=== PATIENT | male | born 1935 | race Caucasian/White ===

== ENCOUNTER 2016-10-01 14:17 | Inpatient (IN) ==
[2016-10-01] MEDS ORDERED: ZOFRAN IV PRN (16:09)
[2016-10-01 17:04] LABS: HEMATOCRIT 32.5 % (42.0-52.0); HEMOGLOBIN 10.4 g/dL (14.0-18.0)
[2016-10-01] MEDS ORDERED: MORPHINE IV ONE (17:17)
[2016-10-01] MEDS ORDERED: MORPHINE IV PRN (17:17)
[2016-10-01] MEDS ORDERED: B & O 15A SUPP PR PRN (17:29)
[2016-10-01 17:34] LABS: CALCIUM 8.9 mg/dL (8.8-10.2)
[2016-10-01 17:35] LABS: POTASSIUM 6.2 mmol/L (3.5-5.1)
[2016-10-01] MEDS ORDERED: NUBAIN IV ONE (17:36)
[2016-10-01] MEDS ORDERED: KAYEXALATE PO ONE (17:36)
[2016-10-01] MEDS ORDERED: NS NEB INH SCH (18:00)
[2016-10-01] MEDS ORDERED: CALCIUM GLUCONATE 4.65 MEQ in NS 50 ML IV ONE (18:00)
[2016-10-01] MEDS: NS 1,000 ML IV SCH (18:35)
[2016-10-01] MEDS: CARDIZEM PO SCH (20:38)
[2016-10-01] MEDS: TYLENOL PO PRN (20:38)
[2016-10-01] MEDS ORDERED: STERILE WATER INJ. ONE (20:46)
[2016-10-01] MEDS: XOPENEX NEB INH SCH (22:53)
[2016-10-02] MEDS: CARDIZEM PO SCH ×4 (02:12→21:54)
--- NOTE | 2016-10-02 04:47 | HISTORY AND PHYSICAL ---
CHIEF COMPLAINT: Hematuria. HISTORY OF PRESENT ILLNESS: Briefly, this is an 81-year-old male, history of atrial fibrillation, on Coumadin therapy, BPH, COPD. It here he has got a chronic indwelling Putnam, but his family denies this. He was admitted on the , but he has been in and out of the hospital for the last 2 weeks per his son. He initially had "double pneumonia." I think he had a catheter placed during that hospitalization. He subsequently developed hematuria. Additionally, he had some rectal bleeding associated with hemorrhoids. Off-and-on for the last week and a half though, he has had persistent hematuria, which has never really cleared up, but he was discharged. I think he went home with a Putnam, came back in because of worsening shortness of breath. On the , his saturations were down into the 80s. He was placed on oxygen and had some improvement. He was felt to have a COPD exacerbation at that time, and some renal failure. I do not have a baseline renal function, but reportedly here it says he is stage 3-4. His creatinine at the outlying facility has been around 4. Coumadin had been discontinued because of his hematuria. INR has been around 1. In any case, he was transferred here for urological evaluation because of the persistent hematuria and renal dysfunction. He has had some hyperkalemia as well in the 5 range, which has been treated there. They have been flushing his catheter, but the hematuria really has not improved. Based on the lab work, his hemoglobin and hematocrit was 9.9 and 30.9 when he came in. It is 9 and 29 today. White count of had been about 11 and 12. His creatinine, INR yesterday was 1.1. Again, I think he has been off of Coumadin. His creatinine has been 75, 4.8, 71, and 4.1 today, and that is with fluids, GFR being 12-14. Again, I think his baseline creatinine is usually around, at least stage-stinson, 3-4. The patient admitted for gross hematuria associated with Putnam and anticoagulation, possibly other diagnosis. PAST MEDICAL HISTORY: 1. Atrial fibrillation. 2. Hypertension. 3. History of pneumonia. 4. BPH. 5. COPD, on oxygen. 6. Chronic renal failure, stage 3 to 4. 7. Hemorrhoids. 8. His kidney disease, he has been on dialysis historically, but nothing recently. PAST SURGICAL HISTORY: 1. Tonsillectomy. 2. Appendectomy. SOCIAL HISTORY: No tobacco. No ethanol. 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 ALLERGIES: No known drug allergies, although apparently he had significant mentation issues associated with morphine. FAMILY HISTORY: Son with diabetes and PVD. MEDICATIONS: List is being compiled. He has been on lisinopril, warfarin, amlodipine, finasteride, Flomax, Breo, and previously Eliquis. REVIEW OF SYSTEMS: Otherwise, negative x10 systems was reviewed. PHYSICAL EXAMINATION: VITAL SIGNS: Right now, heart rate in the 130s. GENERAL: A well-developed male, having severe pain, associated with spasms from his bladder, in mild distress. HEENT: Pupils equal, round, reactive to light. Extraocular movements were intact. PERRLA. Lips do seem somewhat darkened. NECK: Supple. CARDIOVASCULAR: Regular rate and rhythm. PULMONARY: Bilateral breath sounds. Clear to auscultation. GASTROINTESTINAL: Soft, nontender, nondistended. Bowel sounds are positive. LABORATORY DATA: Again, his most recent BUN and creatinine here are 73 and 3.7. Potassium 6.2, hemoglobin and hematocrit 10 and 32. Platelets previously stable. I do not have any other imaging. ASSESSMENT AND PLAN: This is an 81-year-old male with history of atrial fibrillation, hypertension, who presents with persistent hematuria, associated with Putnam catheter placement, and we will clinically monitor. 1. Hematuria. Will pursue consult. Monitor hemoglobin and hematocrit. At this point, he does not need a transfusion. Anticoagulation has been discontinued, so I do not think that is contributing. I personally think he needs continuous bladder irrigation until the hematuria resolves. He will need likely cystoscopy. I am going to pursue imaging just to evaluate his bladder and kidneys, just to ensure there is no obstruction or mass or anything that could be associated. 2. Chronic obstructive pulmonary disease. This appears to be stable. We will continue to monitor closely. Continue nebulizer treatments, oxygen, and follow. He is not having any decompensation at this point. 3. Atrial fibrillation. Right now he is a little fast, although when auscultating earlier, he seemed to be more close to 100. We will need to continue some low-dose Cardizem to ensure that his blood pressure stabilizes. 4. Atrial fibrillation. We will continue Cardizem, obviously holding anticoagulation. We will follow clinically. 5. Disposition. Pending his clinical course. cc: MD Oksana Echeverria MD
[2016-10-02 05:57] LABS: MANUAL DIFF NEEDED? NO
[2016-10-02] MEDS: NS 1,000 ML IV SCH ×3 (05:58→20:18)
[2016-10-02] MEDS: PRILOSEC PO SCH ×2 (05:58→06:02)
[2016-10-02] MEDS: ATIVAN IV ONE ×2 (06:00→07:38)
[2016-10-02 06:10] LABS: INR 1.16; PROTIME 12.3 Seconds (9.2-11.7); PTT 28.3 Seconds (22.0-36.0)
[2016-10-02 06:22] LABS: BASO% 0.3 % (0.0-0.8); EOS# 0.24 X1000 (0.0-0.7); EOS% 2.2 % (0.0-10.0); HEMOGLOBIN 9.2 g/dL (14.0-18.0); IMM GRAN# 0.04 X1000 (0.0-0.04); IMM GRAN% 0.4 % (0.0-0.5); LYMPH# 0.88 X1000 (1.2-3.4); LYMPH% 8.2 % (20.5-51.1); MCH 31.1 PG (27-31); MCHC 31.7 g/dL (33-37); MONO# 1.07 X1000 (0.11-0.59); MONO% 9.9 % (1.7-9.3); MPV 11.2 FL (7.4-10.4); PLT 132 X1000 (130-400); RBC 2.96 XMIL (4.7-6.1)
[2016-10-02 06:33] LABS: ALBUMIN 3.2 g/dL (3.5-5.0); CALCIUM 8.7 mg/dL (8.8-10.2); POTASSIUM 6.5 mmol/L (3.5-5.1); TOTAL BILIRUBIN 0.46 mg/dL (0.20-1.00); TOTAL PROTEIN 5.9 g/dL (6.3-8.3)
[2016-10-02] MEDS ORDERED: ATIVAN IV ONE (06:35)
[2016-10-02] MEDS ORDERED: KAYEXALATE PO ONE (06:56)
[2016-10-02] MEDS ORDERED: D50W SYRINGE IV ONE (06:59)
[2016-10-02] MEDS ORDERED: HUMULIN R IV ONE (07:00)
[2016-10-02] MEDS ORDERED: ALBUTEROL 0.5% INH CONC FOR HYPERKALEMIA INH ONE (07:07)
[2016-10-02] MEDS: XOPENEX NEB INH SCH ×3 (07:36→21:58)
--- NOTE | 2016-10-02 07:40 | Diag Imaging Result Doc PS360 ---
EXAM: RENAL STONE SEARCH INDICATION: hematuria TECHNIQUE: COMPARISON: None. FINDINGS: There is a moderate-sized right pleural effusion and a small left effusion. There is bibasilar atelectasis and infiltrate at the lung bases. There is likely pneumonia at both lung bases, especially on the right. There has been a previous cholecystectomy. There are bilateral cyst density renal lesions. There are couple tiny hyperdense foci on the right probably represent tiny blood filled cysts. Consider at least ultrasound follow-up. There is probably a tiny nonobstructing intrarenal stone on the left. There are no ureteral stones and there is no hydronephrosis. The prostate is enlarged. A Putnam catheter is in place. There is a small amount of dense debris layering in the urinary bladder, likely blood products. There are bilateral inguinal hernias that contain only fat. There is no evidence of bowel obstruction. There is uncomplicated diverticulosis coli. The remainder of the solid viscera of the abdomen and pelvis and the remainder of the GI tract are essentially unremarkable. There is bilateral L5 spondylolysis with grade 1 anterolisthesis of L5 on S1. There is multilevel degenerative arthropathy throughout the spine. IMPRESSION: 1.Layering debris in the urinary bladder, likely blood products. 2.Bilateral renal cysts with a couple small hypodense foci involving the right kidney, likely blood-filled cysts. Consider at least ultrasound follow-up. 3.Enlarged prostate. 4.Bibasilar pleural effusions and atelectasis as described with likely superimposed pneumonia. 5.Other incidental/nonacute findings detailed above. Electronically signed by Casa Romo 10/02/2016 7:37 AM
[2016-10-02] MEDS ORDERED: SODIUM BICARBONATE 8.4% IV ONE (08:27)
--- NOTE | 2016-10-02 08:41 | Diag Imaging Result Doc PS360 ---
EXAM: CHEST-2 VIEWS HISTORY: hypoxia TECHNIQUE: COMPARISON: None. FINDINGS: The lungs are well expanded. The heart is mildly prominent. There are increased interstitial markings bilaterally. There is increased density in the posterior inferior lungs and there are small pleural effusions. IMPRESSION: Cardiomegaly with mild pulmonary edema and small pleural effusions as well as basilar atelectasis. Follow-up films recommended. Electronically signed by Bhaskar Allen 10/02/2016 8:38 AM
[2016-10-02] MEDS: TYLENOL PO PRN ×2 (09:46→21:54)
[2016-10-02] MEDS: PYRIDIUM PO SCH ×3 (09:46→21:54)
[2016-10-02] MEDS: ZOSYN 2.25 GM/NS 2.25 GM/50 ML IVPB IV SCH ×3 (11:01→22:30)
[2016-10-02 11:16] LABS: MAGNESIUM 1.7 mg/dL (1.5-2.7)
--- NOTE | 2016-10-02 13:12 | EKG Report ---
Test Performed on : 10/02/2016 12:46:14 PM Test Reason : hyperkalemia Blood Pressure : / mmHG Vent. Rate : 086 BPM Atrial Rate : 080 BPM P-R Int : 000 ms QRS Dur : 104 ms QT Int : 392 ms P-R-T Axes : 000 032 011 degrees QTc Int : 469 ms Atrial fibrillation. Abnormal ECG No previous ECGs available Confirmed by Miguel Parrish MD ([id number]) on 10/03/2016 2:16:37 PM
--- NOTE | 2016-10-02 14:01 | CONSULTATION ---
DATE OF CONSULTATION: 10/02/2016 REASON FOR CONSULTATION: Chronic kidney disease. HISTORY OF PRESENT ILLNESS: Mr. Mancilla is an 81-year-old white male with multiple medical problems, including COPD, atrial fibrillation, hypertension. He has known chronic kidney disease and the chart indicates that he has actually required dialysis in the past. He is not in the [facility] or in my office system, however. He presented to the hospital in [place] on the with pneumonia. He had difficulty with voiding and hematuria and a Putnam catheter was placed. He was transferred to our facility yesterday because of an obstructed Putnam and need from assistance from Urology. He had his Putnam catheter replaced and an irrigation catheter was installed. Since that time, he has been having constant irrigation with improvement in his urine output. CT of the abdomen was performed as part of his evaluation overnight. The official report describes debris in the bladder consistent with blood products as well as bilateral renal cysts and no evidence of obstruction. In this context, his creatinine on presentation was 3.7. It was 4.3 at the outlying facility. Again we do not have any old data available to us. He has chronic COPD and some shortness of breath. His appetite is intact. No nausea or vomiting. No chest pain or palpitation. Swelling is present. PAST MEDICAL HISTORY: As above. He has also had recently bilateral pneumonia. BPH. HOME MEDICATIONS: Include acetaminophen, ondansetron, morphine, opium/ belladonna, Nubain, sodium polystyrene, calcium gluconate, diltiazem, lorazepam, levalbuterol, omeprazole, piperacillin. These are the medicines on transfer. ALLERGIES: Morphine. SOCIAL HISTORY: He is to his 2nd . He has 4 adult children. No alcohol or tobacco. FAMILY HISTORY: Noncontributory. No kidney disease. PHYSICAL EXAMINATION: Vital Signs: Blood pressure 155/74, heart rate 95, respiration 18, afebrile. Generally: He is an elderly man in no distress. Skin: Warm and dry. Conjunctivae are pink. Pupils are equal. Oropharynx is clear and dry. Neck: Supple. Trachea is midline. Neck veins are not distended. Heart: Irregular with a holosystolic murmur that radiates to the axilla. Lungs: Have equal breath sounds. No crackles or wheezes. Abdomen: Soft, nontender. Bowel sounds are present. No organomegaly or masses. Extremities: Have 2+ edema. No clubbing or cyanosis. Neurologic: Nonfocal. LABORATORY DATA: Sodium 141, potassium 6.5, chloride 109, bicarbonate 18, BUN 74, creatinine 3.8, hemoglobin 9.2. IMPRESSION: 1. Renal failure: Chronic kidney disease stage 4 to 5. No clear evidence of overlying acute kidney injury. He has had appropriate imaging. I have reviewed his medications and no changes are required at this time. He does have significant hyperkalemia that has been treated both with acute treatment and with sodium polystyrene to address his chronic hyperkalemia. We will need to continue this over the next several days. He has no absolute indications for dialysis at this time unless his potassium cannot be managed. I would prefer to observe for 24-48 hours before making this decision. He does have metabolic acidosis that is moderate in degree and stable. 2. Anemia is present. We will check iron stores, B12, and folate. cc: MD Billy Landry MD MTDD
[2016-10-02 14:25] LABS: UR CREAT RANDOM 61.5 mg/dL (14-26); UR PROT RANDOM 48.7 mg/dL
--- NOTE | 2016-10-02 14:25 | ECHO REPORT ---
ORDER DATE: 10/02/2016 ECHOCARDIOGRAPHIC MEASUREMENTS: 1. Interventricular septum 1.4 2. Left ventricular posterior wall 1.3. 3. Diastolic diameter 4.6. 4. Left atrium 3.9. 5. Aorta 3.8. SUMMARY OF 2-DIMENSIONAL IMAGIN. Aortic valve leaflets are mildly sclerosed, trileaflet opening normally. Pulmonic valve was normal. 2. Normal left ventricular cavity size. Mild left ventricular hypertrophy. Estimated ejection fraction of 65%. There is left atrial enlargement. Mitral valve was normal. Tricuspid valve was normal. There is mild tricuspid regurgitation. Peak velocity across the tricuspid valve was 3.3 m/sec. Pulmonary artery systolic pressure of 54 mmHg. 3. Peak velocity across the aortic valve less than 2 m/sec. There is no aortic stenosis. There is mild aortic regurgitation. 4. There is mild to moderate mitral regurgitation. 5. There is no pericardial effusion or obvious intracardiac mass or thrombus. cc: MD Sami Meek CRNP Alexis R. Penot, MD
--- NOTE | 2016-10-02 18:05 | PROGRESS NOTE ---
DATE: 10/02/2016 SUBJECTIVE DATA: This is an 81-year-old male with multiple medical problems who was admitted with gross hematuria. He was also admitted with acute on chronic renal failure with a creatinine of 2.3 and hyperkalemia with a potassium of 6.2. This morning his potassium was still 6.1 but was treated appropriately and has now come down to 5.1. He is currently getting CBI per Dr. Prieto. Chest x-ray this morning did show some pulmonary edema and echocardiogram was negative for any acute findings. At this time he just had a large bowel movement consistent with diarrhea but denies any overt abdominal pain. He says he is overall feeling better. Denies any chest pain or shortness of breath. Dr. Durham has also seen the patient at this time, does not feel he is a candidate for dialysis. OBJECTIVE DATA: Vital signs: Blood pressure is 136/77, heart rate is 88, respiratory rate 20, O2 saturation 96% on nasal cannula. Intake 16,725, output 17,700, balance of -975 (please note that 16,000 mL of input was secondary to CBI). General: Obese male lying in hospital bed in no acute distress. Neurologic: He is awake and alert. He is oriented, followed commands. No focal deficits. HEENT: Head is atraumatic, normocephalic. Pupils are equal, round, reactive to light. His oral mucosa is dry. Trachea is midline. No JVD. Chest: Clear to auscultation bilaterally. CV: Irregular. S1, S2 is noted. 2/6 systolic ejection murmur. GI: Soft, nondistended, nontender. Bowel sounds positive. Extremities: 1+ edema bilaterally. DIAGNOSTIC DATA: Chest x-ray today shows cardiomegaly and mild pulmonary edema. Echocardiogram shows EF of 65% with no real acute abnormalities. WBC 10.76, hemoglobin 9.2, hematocrit 29, platelet count is 132,000. INR 1.16, sodium 141, potassium 5.1, chloride 109, CO2 18, anion gap 14, BUN 74, creatinine 3.8, glucose 94, calcium 8.7. LFTs within normal limits. Albumin 3.2, urine random creatinine 61.5, total protein urine 48.7, urine random sodium 64, urine random urea nitrogen 621. ASSESSMENT AND PLAN: 1. Gross hematuria: Dr. Prieto has seen the patient, at this time is recommending continued CBI. No plans for cystoscopy at this time. 2. Acute on chronic renal failure: Creatinine is slightly up today but Dr. Durham does not feel he is a candidate for dialysis at this time. We will continue to monitor his I's and O's, electrolytes, hemoglobin and hematocrit and fluid volume status. He is a bit volume overloaded. His echocardiogram did not show any acute findings. 3. Hyperkalemia: This has been resolved with appropriate medications. Will monitor on telemetry. 4. Normocytic anemia: Iron studies ordered for tomorrow. 5. Chronic obstructive pulmonary disease: Not in exacerbation, will continue p.r.n. nebulizations. 6. Deep vein thrombosis prophylaxis with SCDs. Further recommendations to follow. Dictated by TAPAN Kelley for Billy Barlow MD cc: TAPAN Kelley MD
[2016-10-02] MEDS: FLOMAX PO SCH (21:54)
[2016-10-02] MEDS ORDERED: BLISTEX MEDICATED BERRY LIP BALM TOP PRN (22:11)
[2016-10-03] MEDS: CARDIZEM PO SCH ×3 (03:21→15:20)
--- NOTE | 2016-10-03 04:12 | CONSULTATION ---
DATE OF CONSULTATION: 10/02/2016 ATTENDING AND REFERRING PHYSICIAN: Hospitalist. HISTORY OF PRESENT ILLNESS: This 81-year-old male was admitted with pneumonia and a history of gross hematuria. The patient was hospitalized at another facility for exacerbation of COPD and pneumonia. A Putnam catheter was placed and he was sent home with the catheter. Apparently, he had trauma and started bleeding. The patient has a history of atrial fibrillation and is on Coumadin therapy. The patient has stopped this. The patient and son state that he had significant bleeding yesterday but the urine has cleared markedly. The patient has continuous bladder irrigation running through a [address] Putnam catheter. The patient states he feels he is doing better. He denies any previous urologic surgery. He states he passed a kidney stone many years ago. He states that several years ago, he was taking Flomax but is not taking any medication for his prostate at present. He states he did not think he was having any problems voiding until he could not void. He has chronic renal insufficiency. He denies problems with urinary tract infections. PAST MEDICAL HISTORY: COPD, current pneumonia, history of atrial fibrillation, hypertension, renal insufficiency. CURRENT MEDICATIONS: Documented on the chart. PAST SURGICAL HISTORY: Tonsillectomy and appendectomy. SOCIAL HISTORY: There is no recent tobacco or alcohol use. He lives with his . ALLERGIES: No known drug allergies. REVIEW OF SYSTEMS: He denies problems with diabetes, strokes, seizures, or recent bowel problems. PHYSICAL EXAMINATION: General: A mildly obese, age apparent, normally developed, white male who is cooperative. HEENT: Normal for age. Lungs: Clear. Cardiovascular: Regular rate and rhythm. Abdomen: Mildly obese, soft, nontender. No hepatosplenomegaly or masses. Normal bowel sounds. : Three way Putnam catheter in place. Uncircumcised male. The foreskin is reduced. Scrotum with bilateral hydroceles, palpably normal testes. Rectal: Normal sphincter tone. Prostate about 40-50 g, smooth, and symmetric. Extremities: No clubbing, cyanosis, or edema. Neurologic: No focal deficits. LABORATORY EVALUATION: He has a white count of 10.76, a hemoglobin of 9.2, hematocrit of 29. Sodium is 141, potassium most recent is 5.1, chloride 109, bicarb 18, BUN 74, creatinine 3.8. The patient states he was on dialysis several years ago. A CT scan reveals normal kidneys with small cysts bilaterally. There is no hydronephrosis noted. The bladder appears to have some debris and a diverticulum. IMPRESSION: 1. Acute clot retention probably due to Putnam catheter trauma and being over- anticoagulated. 2. History of renal stones. 3. Enlarged prostate with some obstructive voiding. 4. 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 RECOMMENDATIONS: Flomax 0.4 mg b.i.d. Wean off continuous bladder irrigation. Continue Putnam drainage until the urine is clear and pneumonia has resolved. He will need a cystoscopic exam which can be done in the office. Thank you for this consultation. cc: MD Billy Zhu MD MTDFloyd
[2016-10-03] MEDS: ZOSYN 2.25 GM/NS 2.25 GM/50 ML IVPB IV SCH ×3 (06:10→17:58)
[2016-10-03] MEDS: PRILOSEC PO SCH (06:10)
[2016-10-03 06:45] LABS: HEMATOCRIT 29.4 % (42.0-52.0); HEMOGLOBIN 9.3 g/dL (14.0-18.0); MCH 31.2 PG (27-31); MCHC 31.6 g/dL (33-37); MCV 98.7 FL (81-99); MPV 11.4 FL (7.4-10.4); RBC 2.98 XMIL (4.7-6.1)
[2016-10-03 06:52] LABS: IRON SATURATION 24 %; TIBC 188 ug/dL; TOTAL IRON 46 ug/dL (53-167); UNBOUND IRON 142 ug/dL (112-346)
[2016-10-03 07:00] LABS: ALBUMIN 3.2 g/dL (3.5-5.0); CALCIUM 8.9 mg/dL (8.8-10.2); POTASSIUM 5.4 mmol/L (3.5-5.1)
[2016-10-03 07:20] LABS: FERRITIN 447 ng/mL (30-400)
[2016-10-03] MEDS: XOPENEX NEB INH SCH ×3 (07:58→23:20)
[2016-10-03] MEDS: FLOMAX PO SCH (10:15)
[2016-10-03] MEDS: PYRIDIUM PO SCH ×3 (10:16→17:58)
--- NOTE | 2016-10-03 10:27 | PROGRESS NOTE ---
DATE: 10/03/2016 TIME SEEN: 0805 SUBJECTIVE: Mr. Mancilla is resting quietly in a chair. He denies any chest pain or increased work of breathing. OBJECTIVE: Vital Signs: His most recent vital signs, last temperature 98.1 degrees, blood pressure 158/87, heart rate 86, respirations are 20. Continues on 2 L nasal cannula. Last recorded saturation 94%. He has had 1648 in and 1850 out. Patient is euvolemic at this time. Laboratory Data: Most recent labs of sodium 145, potassium 5.4, chloride is 114 , CO2 18, BUN 61, creatinine 3.5, glucose 99. He has an anion gap of 13, calcium 8.9, phosphorus 4.5, albumin 3.2. White count 10.1, hemoglobin 9.3, hematocrit 29.4, with a platelet count of 139, 000. Patient has a total iron saturation of 24%, ferritin of 447, B12 of 289, with a folate of 9.8. His iron level is 46 with a total iron binding capacity of 188. Physical Examination: General: This is an 81-year-old, white male. He is sitting up in a chair. He appears in no acute distress. His skin is warm and dry. HEENT: Normocephalic, atraumatic. Conjunctivae are pink. He has CLINTON. Mucous membranes are moist. Neck: Supple. Trachea midline. No JVD. Cardiovascular: Irregular rate and rhythm. He has a soft systolic murmur that radiates across the entire chest. No gallop. Lungs: Clear to auscultation anteriorly. Equal excursion. He is on O2. Abdomen: Large, round, soft, nontender. Positive bowel sounds. Genitourinary: Not inspected. Patient has adequate urine out. Extremities: Have trace pretibial edema. No clubbing or cyanosis. Neurological: Alert and oriented x3. ASSESSMENT AND PLAN: 1. Acute renal failure on chronic kidney disease. Questionable stage IV with an improvement to his creatinine. Patient appears to have obstructive uropathy. Dr. Prieto has been consulted. We appreciate his input. 2. Electrolytes and acid-base balance. These are stable. 3. Anemia. This remains stable. 4. Acid-base balance. This is stable. I would to thank you for allowing us to follow with this patient. Seen, data reviewed, discussed with Yogi Church on 10/03/16. I agree with the above assessment and plan of care. rg Dictated by TAPAN Harkins for Robles Durham MD cc: TAPAN Harkins MD Alexis R. Penot, MD [facility] PARTNERS[facility]oyd
[2016-10-03] MEDS: TYLENOL PO PRN (11:09)
[2016-10-03] MEDS: TEARISOL OPH SOLUTION BOTH EYES PRN ×2 (11:10→13:15)
[2016-10-03] MEDS: XOPENEX NEB INH PRN ×2 (13:09→19:05)
--- NOTE | 2016-10-03 15:03 | PROGRESS NOTE ---
DATE: 10/03/2016 SUBJECTIVE: Today Mr. Mancilla refers to be doing okay. Complains of not being able to sleep at night. OBJECTIVE: Vital signs: Blood pressure is 158/87 pulse of 83, respirations 20 , temperature 98.1 degrees. General: Mr. Mancilla is an 81-year-old male. He is in bed, not in any remarkable distress. HEENT: Mucosa is pink and moist. Anicteric. Acyanotic. Neck: Supple. Chest: Good air entry bilateral. Cardiovascular: Regular rate and rhythm. Abdomen: Soft. Extremities: About 1+ pedal edema. CLOTH BOLT BANDER: Patient is alert and oriented. CURRENT MEDICATIONS: Have been reviewed. ASSESSMENT: 1. Acute urinary clot retention, probably due to Putnam catheter trauma on top of coagulation therapy. The patient has been evaluated by Dr. Prieto. Will continue with the outlined therapy by him. 2. Gross hematuria. This is improved. 3. Acute on chronic renal failure, stable. 4. Chronic obstructive pulmonary disease, noted. Will continue with the nebulization therapy. 5. Of note, patient has been treated for pneumonia at an outside facility before coming to the hospital. We will continue with the current antibiotic coverage. 6. We are going to encourage the patient to sit up in a chair at least twice per day with the help of the lift team. cc: MD Billy Ash MD [facility]
[2016-10-03] MEDS: SODIUM BICARBONATE PO SCH (17:59)
[2016-10-03] MEDS: NUBAIN IV PRN (18:00)
[2016-10-03] MEDS: NS 1,000 ML IV SCH (19:48)
[2016-10-03] MEDS: VELTASSA PO SCH (20:52)
[2016-10-04] MEDS: ZOSYN 2.25 GM/NS 2.25 GM/50 ML IVPB IV SCH ×5 (00:05→22:51)
[2016-10-04] MEDS: MELATONIN PO SCH ×2 (00:05→21:31)
[2016-10-04] MEDS: CARDIZEM PO SCH ×5 (00:05→21:30)
[2016-10-04] MEDS: SODIUM BICARBONATE PO SCH ×3 (00:05→21:30)
[2016-10-04] MEDS: FLOMAX PO SCH ×3 (00:05→21:30)
[2016-10-04] MEDS: XOPENEX NEB INH PRN ×3 (02:36→20:27)
[2016-10-04] MEDS: NUBAIN IV PRN ×2 (02:40→21:28)
[2016-10-04 03:58] LABS: ALLEN TEST YES; BE -6.6 mmoll (-3.0-3.0); BLOOD TYPE ARTERIAL; DRAW SITE R RADIAL; O2(CT) 11.5 mL/dL (15.0-23.0); PCO2(98.6) 31 mmHg (35-45); PO2(98.6) 80 mmHg (60-100); SAMPLE BLOOD; SAO2 96.7 % (95.0-100.0); THB 8.6 g/dL (11.5-17.4); pH(98.6) 7.37 (7.35-7.45)
[2016-10-04 03:59] LABS: MODALITY CANNULA
[2016-10-04] MEDS: PRILOSEC PO SCH (06:10)
[2016-10-04 06:23] LABS: HEMATOCRIT 27.3 % (42.0-52.0); HEMOGLOBIN 8.5 g/dL (14.0-18.0); MCH 31.1 PG (27-31); MCHC 31.1 g/dL (33-37); MPV 11.5 FL (7.4-10.4); RBC 2.73 XMIL (4.7-6.1)
[2016-10-04 06:52] LABS: CALCIUM 8.5 mg/dL (8.8-10.2)
[2016-10-04 07:18] LABS: ALBUMIN 3.2 g/dL (3.5-5.0); CALCIUM 8.7 mg/dL (8.8-10.2); POTASSIUM 5.3 mmol/L (3.5-5.1)
[2016-10-04] MEDS: XOPENEX NEB INH SCH ×3 (07:46→23:05)
[2016-10-04] MEDS: VENOFER 200 MG in NS 150 ML IV SCH (09:33)
[2016-10-04] MEDS: PYRIDIUM PO SCH ×4 (09:33→21:29)
--- NOTE | 2016-10-04 14:11 | PROGRESS NOTE ---
DATE: 10/04/2016 TIME SEEN: 07:40. SUBJECTIVE: Mr. Pedroza is sitting up in a chair. He denies chest pain or increased work of breathing. He does state that he has penile pain secondary to large Putnam catheter with flushing of clots. OBJECTIVE: His most recent vital signs: Temperature 98 degrees, blood pressure 145/72, heart rate 78, respirations 20. He is on 4 L nasal cannula, last recorded saturation 96%. He has had 1035 in, 1925 out per Putnam catheter. PATIENT'S LABS: Sodium 148, potassium 5.3, chloride 116, CO2 17, BUN 55, creatinine 3.4, glucose 98. His anion gap is 15, calcium 8.7, phosphorus 4.5, albumin 3.2. White count 7.87, hemoglobin 8.5, hematocrit 27.3, with a platelet count of 136,000. PHYSICAL EXAMINATION: General: This is an 81-year-old white male. He is sitting up in a chair. He has no acute distress. Skin: Warm and dry. HEENT: Normocephalic, atraumatic. Conjunctiva is pink. He has CLINTON. Mucous membranes moist. Neck: Supple. Trachea midline. No JVD evident. Cardiovascular: Irregular rate and rhythm. He has a soft systolic murmur. No gallop is appreciated. Lungs: Clear to auscultation anteriorly. Equal excursion. He is on O2. Abdomen: Soft, nontender. Positive bowel sounds. Extremities: He has trace to 1+ lower extremity edema. These have been dependent for the last several hours. Genitourinary: Putnam catheter remains in place. He has clear yellow urine dark in pigment to the bag. Extremities: Trace edema. No clubbing or cyanosis. Some venous stasis is present. Neurological: Alert and oriented x3. ASSESSMENT AND PLAN: 1. Acute renal failure on chronic kidney disease stage 4. Patient's BUN and creatinine continue to just slowly improve secondary to obstructive uropathy. This continues to be followed by Dr. Prieto. No indications for further intervention. If ready for discharge , we will follow him in the office. rg 2. Electrolytes, acid-base balance and anemia. These remain stable. I would to thank you for allowing us to follow with this patient. Seen, data reviewed, discussed with Yogi Church on 10/04/16. I agree with the above assessment and plan of care. rg Dictated by TAPAN Harkins for Robles Durham MD cc: TAPAN Harkins MD Alexis R. Penot, MD [facility]oyd
--- NOTE | 2016-10-04 15:47 | PROGRESS NOTE ---
DATE: 10/04/2016 Today Mr. Mancilla refers to be doing a little better but continues to have some mild shortness of breath. OBJECTIVE: Vital signs: Blood pressure is 157/67, pulse of 85, respirations 20, temperature is 98.1 degrees. Patient's saturation went down to 94% on 4 L of oxygen. General: Mr. Mancilla is an 81-year-old male, he is in bed. He looks slightly dyspneic. HEENT: Mucosa is pink and moist. Anicteric. Acyanotic. Neck: Supple. Chest: Air entry is bilaterally reduced. There is diffuse bilateral posterior crepitations. Cardiovascular: Regular rate. There is a PS murmur. CONSERVATION ASSISTANT: Patient is alert and oriented x4. There is no focal neurological deficit. Extremities: There is about 1 to 2+ pedal edema. LABORATORY DATA: WBC is 7.87, hemoglobin is 8.5, platelet count of 136,000. Chemistry is reviewed. Sodium is 148, potassium 5.3, chloride is 116, bicarb is 17, anion gap is 15, creatinine is 3.4, calcium is 8.5, phosphorus is 8.6. PTH is 181. Vitamin D is 16.2. ASSESSMENT: 1. Acute urinary retention. Probably due to Putnam catheter trauma on top of coagulation therapy. 2. Gross hematuria improved. 3. Acute on chronic respiratory failure. 4. Hypoxemic respiratory failure. I think this is probably due to over hydration. Patient seems to be retaining in the lungs. I will do a chest x-ray to look on the lungs. For now would discontinue the IV fluids. If there is not any remarkable pulmonary edema we will restart fluid but then only use dextrose and bicarb. 5. Pneumonia. Patient is on antibiotics. So in general I think Mr. Mancilla is having a little bit more difficulty breathing than before. Lung exams show a lot of crepitations and I think he is having fluid overload. Withheld the fluid. We will do a chest x-ray and review the image and make further recommendations. cc: MD Billy Ash MD
--- NOTE | 2016-10-04 15:54 | Diag Imaging Result Doc PS360 ---
CHEST-PORTABLE - 10/04/2016 INDICATION: sob TECHNIQUE: COMPARISON: 10/02/2016 FINDINGS: There is cardiomegaly. There is worsening bilateral perihilar infiltrates or edema, right greater than left. There are probably small pleural effusions. IMPRESSION: Worsening from prior. Findings are consistent with central pulmonary edema or volume overload. Electronically signed by Gonzalo Olmedo 10/04/2016 3:51 PM
[2016-10-04] MEDS: VELTASSA PO SCH (16:00)
[2016-10-04] MEDS ORDERED: LASIX IV ONE (21:20)
[2016-10-05] MEDS: CARDIZEM PO SCH ×5 (03:28→20:45)
[2016-10-05] MEDS: ZOSYN 2.25 GM/NS 2.25 GM/50 ML IVPB IV SCH ×4 (05:29→23:47)
[2016-10-05] MEDS: PRILOSEC PO SCH ×2 (05:30→06:43)
[2016-10-05 06:24] LABS: HEMATOCRIT 29.3 % (42.0-52.0); HEMOGLOBIN 9.1 g/dL (14.0-18.0); MCHC 31.1 g/dL (33-37); MCV 103.2 FL (81-99); MPV 11.3 FL (7.4-10.4); RBC 2.84 XMIL (4.7-6.1)
[2016-10-05 06:47] LABS: ALBUMIN 3.3 g/dL (3.5-5.0); CALCIUM 9.1 mg/dL (8.8-10.2); POTASSIUM 5.2 mmol/L (3.5-5.1)
[2016-10-05] MEDS: XOPENEX NEB INH SCH ×2 (07:27→15:23)
[2016-10-05] MEDS: PYRIDIUM PO SCH ×3 (09:25→20:50)
[2016-10-05] MEDS: FLOMAX PO SCH ×2 (09:25→20:46)
[2016-10-05] MEDS: VENOFER 200 MG in NS 150 ML IV SCH (09:25)
[2016-10-05] MEDS: SODIUM BICARBONATE PO SCH ×2 (09:25→20:46)
--- NOTE | 2016-10-05 10:35 | PROGRESS NOTE ---
DATE: 10/05/2016 SUBJECTIVE: Mr. Mancilla is resting quietly in the bed. He states that he did not sleep well last night. He denies chest pain or increased work of breathing. Just states overall is not feeling well. OBJECTIVE: Vital Signs: His most recent vital signs are temperature 97.9 degrees, blood pressure 115/65, heart rate 93, respirations 20. He is on 4 L nasal cannula. Last recorded saturation 93%. He has had 1320 in. He has had 2600 out per Putnam catheter. LABS: Sodium 145, potassium 5.2, chloride 113, CO2 18. BUN 47, creatinine 3.4 , glucose of 90. Calcium 9.1, anion gap 14, phosphorus 4.3, albumin 3.3. White count 7.87, hemoglobin 9.1, hematocrit 29.2, with a platelet count of 144,000. PHYSICAL EXAMINATION: General: This is an 81-year-old white male. He is currently resting in bed. He appears chronically ill. He is in no acute distress. Skin: Warm and dry. HEENT: Normocephalic, atraumatic. Conjunctiva is pink. He has [place]. Mucous membranes are dry. Neck: Supple. Trachea midline. No JVD. Cardiovascular: He has a regular rate and rhythm on the monitor. He has a soft systolic murmur. No gallop appreciated. Lungs: Clear to auscultation anteriorly. Equal excursion on O2. Abdomen: Large, round, soft, nontender. Positive bowel sounds. Genitourinary: Putnam catheter remains in place, with dark yellow urine to his bag. Extremities: Have trace pretibial edema. No clubbing or cyanosis. Integumentary: Positive venous stasis lower extremities. Warm and dry. No rashes evident. Neurological: Alert and oriented x3. ASSESSMENT AND PLAN: 1. Acute on chronic renal failure. Patient's BUN and creatinine have stabilized. Creatinine remains at 3./4 the patient has had a obstructive uropathy followed by Dr. Prieto. No indications for intervention at this time. We will set up a followup appointment within 2-3 weeks after the patient is discharged with labs. 2. Electrolytes, acid-base balance, and anemia. This remains stable. I would to thank you for allowing us to follow with this patient. Seen, data reviewed, discussed with Yogi Church on 10/05/16. I agree with the above assessment and plan of care. rg Dictated by TAPAN Harkins for Robles Durham MD cc: TAPAN Harkins MD Alexis R. Penot, MD [facility] HOSPITALFloyd
[2016-10-05] MEDS: LASIX IV SCH (10:49)
[2016-10-05] MEDS: XOPENEX NEB INH PRN ×2 (11:25→21:10)
[2016-10-05] MEDS: TYLENOL PO PRN (15:45)
[2016-10-05] MEDS: VELTASSA PO SCH (15:46)
[2016-10-05] MEDS: MELATONIN PO SCH (20:46)
[2016-10-05] MEDS: AMBIEN PO PRN (23:47)
[2016-10-06] MEDS: XOPENEX NEB INH SCH ×4 (01:23→23:35)
[2016-10-06] MEDS: CARDIZEM PO SCH ×4 (04:59→21:43)
[2016-10-06] MEDS: ZOSYN 2.25 GM/NS 2.25 GM/50 ML IVPB IV SCH ×3 (04:59→18:23)
[2016-10-06] MEDS: PRILOSEC PO SCH (06:08)
--- NOTE | 2016-10-06 06:20 | Diag Imaging Result Doc PS360 ---
EXAM: CHEST-PORTABLE HISTORY: dyspnea TECHNIQUE: Portable COMPARISON: 10/04/2016 FINDINGS: The lungs are well expanded. The heart is mildly prominent. There are infiltrates bilaterally. There are small pleural effusions. IMPRESSION: No interval improvement. Electronically signed by Bhaskar Allen 10/06/2016 6:18 AM
[2016-10-06 06:40] LABS: ALBUMIN 3.2 g/dL (3.5-5.0); CALCIUM 8.9 mg/dL (8.8-10.2); POTASSIUM 4.6 mmol/L (3.5-5.1)
[2016-10-06] MEDS: NUBAIN IV PRN (08:19)
[2016-10-06] MEDS: PYRIDIUM PO SCH ×3 (08:20→16:15)
[2016-10-06] MEDS: LASIX IV SCH (08:20)
[2016-10-06] MEDS: FLOMAX PO SCH ×2 (08:20→21:43)
[2016-10-06] MEDS: SODIUM BICARBONATE PO SCH ×2 (08:20→21:43)
[2016-10-06] MEDS: VENOFER 200 MG in NS 150 ML IV SCH (08:20)
[2016-10-06] MEDS ORDERED: EPOGEN SUBQ ONE (09:39)
--- NOTE | 2016-10-06 10:47 | PROGRESS NOTE ---
DATE: 10/06/2016 SUBJECTIVE: He is still complaining of poor sleep, weakness and decreased appetite. He has been very inactive. OBJECTIVE: Vital Signs: Blood pressure 159/66, heart rate 98, respirations 20, afebrile. Intake 1 L, output 2.9 L. General: On physical exam, no acute distress. Skin: Warm and dry. Eyes: Conjunctivae are pink. Heart: Regular with systolic murmur consistent with MR. Lungs: Have equal breath sounds. No crackles or wheezes. Abdomen: Soft and nontender. Bowel sounds are present. Extremities: Have 1+ edema. No clubbing or cyanosis. LABORATORY DATA: Sodium 143, potassium 4.6, chloride 109, bicarbonate 19, BUN 43, creatinine 3.6. IMPRESSION: 1. 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 A 24-hour urine is in process. If his clearance is below 15 given his symptoms, it will make sense to restart hemodialysis. He and I have discussed this, and I have also called his son today to discuss it as well. He will need to be here through the weekend I believe. 2. Anemia. Hemoglobin has been stable. We have treated him with intravenous iron sucrose. I will add erythropoietin. I will give one dose today of 20,000 units. cc: MD Billy Landry MD
--- NOTE | 2016-10-06 15:26 | PROGRESS NOTE ---
DATE: 10/05/2016 Today Mr. Mancilla refers to be doing a little better. Still complains that he has not been able to sleep very well during the night. OBJECTIVE: Vital signs: Blood pressure is 153/79, pulse of 87, respirations 22, temperature is 98.3 degrees and patient was saturating about 93% on 4 L. Objectively: Mr. Mancilla is an 81-year- old male. He is in bed. Seems to be in mild respiratory distress. HEENT: Mucosa is pink and moist. Anicteric. Acyanotic. Neck: Supple. Chest: Air entry is bilaterally reduced. There are some bilateral crepitations in the posterior lung [place]. Cardiovascular: Regular rate and rhythm. There is a PS murmur of about 2/6. EXPERIMENTAL TECHNICIAN: Patient is alert and oriented. Abdomen: Soft. Extremities: About 1 to 2+ pedal edema. LABORATORY DATA: WBC is 7.89, hemoglobin is 9.1, platelet count 144,000. Chemistry is reviewed. Sodium is 145, potassium is 5.3, chloride is 113, bicarb is 18, creatinine is 3.4. The patient's vitamin D level is 16.2 and PTH is 181. ASSESSMENT: 1. Acute urinary retention. This is improved. 2. Gross hematuria likely due to trauma from catheter as well as coagulation therapy. This is improved. 3. Acute on chronic kidney failure. Patient's creatinine has slowly been trending down. We do not have a baseline. Will continue to observe this. Patient is being followed also by Nephrology. 4. Hypoxemic respiratory failure. We think this is multifactorial. Patient had a chest x-ray yesterday which shows worsening bilateral perihilar infiltrates or edema right greater than left. Probably small pleural effusions. Would therefore discontinued the IV fluids yesterday and started giving the patient Lasix. He is responding very well with adequate urine output, 2600 urine output has been documented yesterday. 5. Pneumonia. Patient is getting IV antibiotics. So in general I think Mr. Mancilla is breathing a little bit better today than yesterday. A chest x- ray, which we did yesterday did show pleural effusions with pulmonary congestion which I think he would he was been over hydrated. We discontinued the IV fluids and started the patient on some IV Lasix. He is having adequate urine output. Renal function continues to trend down. We are going to continue with the Lasix for another day and repeat his chest x-ray for tomorrow. The patient also complained of insomnia. Was started on melatonin and he said that has not helped. Will give him a low dose of zolpidem to see if that will help him. cc: MD Billy Ash MD
--- NOTE | 2016-10-06 15:33 | PROGRESS NOTE ---
DATE: 10/06/2016 SUBJECTIVE: Today Mr. Mancilla refers to be doing a little better. He still states he was not able to sleep last night, and he needs something stronger to keep him asleep. OBJECTIVE: Vital Signs: Objectively his vitals reveal blood pressure is 143/85, pulse of 89, respirations 16, temperature is 98.7 degrees. General exam: Mr. Mancilla is an 81-year-old male very pleasant. He is in bed, not seemingly distressed. HEENT: Mucosa is pink and moist. Anicteric. Acyanotic. Neck: Neck is supple. Chest: Air entry is bilaterally reduced. A few bibasilar crepitations. Cardiovascular: Regular rate and rhythm. There is about 2-3 PS murmur. NEWSAGENT: Patient is alert and oriented. Extremities: There is 2+ pedal edema. LABORATORY DATA: Chemistry is reviewed. Creatinine went up to 3.6; BUN however reduce to 43. ASSESSMENT: 1. Acute urine retention. This is overcome by Putnam catheter. 2. Gross hematuria, improved. 3. Acute on chronic respiratory failure. 4. Hypoxemic respiratory failure due to pulmonary edema, improved. 5. Pneumonia, improved. 6. Acute on chronic kidney failure. The patient has been evaluated by nephrology, and they plan to do a 24 hour urine collection for glomerular filtration rate determination. 7. Insomnia. The patient has been started on Ambien and melatonin has also been increased today by nephrology team. 8. Vitamin D deficiency. We will replace that. PLAN: So in general I think Mr. Mancilla is a doing a whole lot better. Came in mainly because of obstructive uropathy which was overcome by Putnam catheter. During the hospital stay, he did have some issues with fluid overload which I think was related to over hydration. However, the patient's kidney function has been in the high end with GFR in the 17s. Nephrology is doing a 24 hour urine collection to have a better idea about GFR. Of note, patient has some metabolic acidosis which we think is related to the renal disease. Also has secondary hyperparathyroidism which we think is related to vitamin D deficiency and the renal disease, and also has some anemia which has been addressed with Venofer and is not getting Epogen. I anticipate that we might be able to discharge Mr. Mancilla maybe after tomorrow once the renal studies have been completed. cc: MD Billy Ash MD
[2016-10-06] MEDS: VELTASSA PO SCH (16:13)
[2016-10-06] MEDS: MELATONIN PO SCH (21:43)
[2016-10-06] MEDS: AMBIEN PO PRN (21:43)
[2016-10-07] MEDS: CARDIZEM PO SCH ×4 (03:02→20:46)
[2016-10-07] MEDS: NUBAIN IV PRN (03:02)
[2016-10-07 06:29] LABS: ALBUMIN 3.3 g/dL (3.5-5.0); CALCIUM 8.9 mg/dL (8.8-10.2); POTASSIUM 4.5 mmol/L (3.5-5.1)
[2016-10-07] MEDS: ZOSYN 2.25 GM/NS 2.25 GM/50 ML IVPB IV SCH ×5 (06:53→23:44)
[2016-10-07] MEDS: PRILOSEC PO SCH (06:54)
[2016-10-07] MEDS: XOPENEX NEB INH SCH ×3 (07:33→23:50)
[2016-10-07] MEDS: VITAMIN D PO SCH (08:34)
[2016-10-07] MEDS: LASIX IV SCH (08:34)
[2016-10-07] MEDS: PYRIDIUM PO SCH ×3 (08:34→20:46)
[2016-10-07] MEDS: VENOFER 200 MG in NS 150 ML IV SCH (08:34)
[2016-10-07] MEDS: FLOMAX PO SCH ×2 (08:35→20:47)
[2016-10-07] MEDS: SODIUM BICARBONATE PO SCH ×2 (08:35→20:47)
[2016-10-07 12:56] LABS: UR CREATININE 47.2 mg/dL (14-26); UR CREATININE TOTAL 1392.4 mg/24 (800-1800); UR PROTEIN 57.6 mg/dL
[2016-10-07] MEDS: TYLENOL PO PRN ×2 (14:29→20:50)
--- NOTE | 2016-10-07 14:42 | PROGRESS NOTE ---
DATE: 10/07/2016 Today Mr. Mancilla refers to be feeling generally weak but no chest pain. No shortness of breath. He also refers that he was not able to sleep very well. OBJECTIVE: Vital signs: Blood pressure is 139/71, pulse of 75, respirations 20, temperature 98.1 degrees. General: Mr. Mancilla is an 81-year-old, elderly male. He was in bed. He did not seem to be in any distress. HEENT: Mucosa is pink and moist. Anicteric. Acyanotic. Neck: Supple. Chest: Clear. Cardiovascular: Regular rate and rhythm. There is a 2/6 PS murmur. Abdomen: Soft. Extremities: About 1 to 2+ pedal edema. 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 LABORATORY DATA: Chemistry: Sodium is 144, potassium is 4.5, chloride is 109, bicarb is 20, creatinine is 3.1. Blood cultures have been negative. ASSESSMENT: 1. Acute urinary retention. This has been overcome by Putnam catheter. We are going to remove the Putnam catheter and see if the patient is able to void. The patient is currently on tamsulosin. 2. Gross hematuria resolved. 3. Acute on chronic respiratory failure due to underlying pulmonary edema improved. 4. Pneumonia. Patient is on antibiotics. Today is day 5. We plan to treat this for 10 days in total. 5. Acute on chronic kidney failure. Patient had 24 hour urine collection done. We are still waiting for the results. 6. Insomnia. Patient is getting both melatonin and Ambien. 7. Vitamin D deficiency improved. 8. Generalized weakness. We will going to remove the Putnam catheter and get some PT to see we can strengthen his physical strength. So, in general Mr. Mancilla is stable. Referred to be feeling a little weak today. We are replacing his vitamin D. We are going to remove the Putnam catheter and see if he will be able to void on his own. We also waiting on the results of the 24 hour urine collection which just finished this morning. I think eventually the patient will be needing to go to rehab so we will consult mental health social worker for rehab placement on Sunday. cc: MD Billy Ash MD
[2016-10-07] MEDS: VELTASSA PO SCH (17:06)
[2016-10-07] MEDS: MELATONIN PO SCH (20:47)
[2016-10-07] MEDS: AMBIEN PO PRN (20:50)
[2016-10-08] MEDS: NUBAIN IV PRN (02:48)
[2016-10-08] MEDS: CARDIZEM PO SCH ×2 (02:53→09:34)
[2016-10-08 06:17] LABS: ALBUMIN 3.2 g/dL (3.5-5.0); CALCIUM 8.9 mg/dL (8.8-10.2); POTASSIUM 4.4 mmol/L (3.5-5.1)
[2016-10-08] MEDS: PRILOSEC PO SCH (06:45)
[2016-10-08] MEDS: ZOSYN 2.25 GM/NS 2.25 GM/50 ML IVPB IV SCH (06:46)
[2016-10-08] MEDS: XOPENEX NEB INH SCH (07:47)
[2016-10-08] MEDS: VITAMIN D PO SCH (09:33)
[2016-10-08] MEDS: VENOFER 200 MG in NS 150 ML IV SCH (09:34)
[2016-10-08] MEDS: FLOMAX PO SCH (09:34)
[2016-10-08] MEDS: LASIX IV SCH (09:34)
[2016-10-08] MEDS: TYLENOL PO PRN ×2 (09:34→15:55)
[2016-10-08] MEDS: SODIUM BICARBONATE PO SCH (09:34)
[2016-10-08] MEDS: PYRIDIUM PO SCH ×2 (09:34→15:55)
[2016-10-08 12:57] VITALS: BP 144/74
[2016-10-08] MEDS ORDERED: LASIX PO SCH (21:00)
[2016-10-08] MEDS ORDERED: AUGMENTIN PO SCH (21:00)
[2016-10-09] MEDS ORDERED: CARDIZEM CD PO SCH (09:00)
--- NOTE | 2016-10-09 09:17 | DISCHARGE SUMMARY ---
ADMISSION DATE: 10/01/2016 DISCHARGE DATE: 10/08/2016 DISPOSITION: Home with home health. FOLLOWUP: 1. Dr. Durham. 2. Dr. Prieto. 3. Dr. Jakob Espinoza. CONSULTATIONS DURING THIS ADMISSION: 1. Urology was consulted. Patient was seen by Dr. Prieto. 2. Nephrology was consulted. Patient was seen by Dr. Durham. INVASIVE PROCEDURES DONE DURING THIS ADMISSION: None. IMAGING STUDIES OF SIGNIFICANCE: 1. A renal CT scan was done on presentation that shows layering debris seen in the urinary bladder, bilateral renal cysts and large prostate, bibasilar pleural effusions, atelectasis with likely superimposed pneumonia. 2. An echocardiogram was done which showed an ejection fraction of 65% with mild concentric hypertrophy. 3. A repeat chest x-ray was done on the which shows lungs are well-expanded. There are infiltrates bilaterally and small pleural effusions. 4. A 24 urine collection was done which showed a creatinine clearance of 31, consistent with CKD stage IV. ADMISSION DIAGNOSES: 1. Hematuria. 2. Chronic obstructive pulmonary disease. 3. Atrial fibrillation. DIAGNOSES AT THE TIME OF DISCHARGE: 1. Acute urinary retention. This has been overcome by Putnam catheter. 2. Gross hematuria with clots in the bladder. This was evaluated by Dr. Prieto and there is a plan for him to do a cystoscopy on an outpatient basis. 3. Acute on chronic respiratory failure due to underlying pulmonary edema, improved. 4. Pneumonia. 5. Acute on chronic kidney failure. A 24 hour urine collection shows a glomerular filtration rate of 31. 6. Vitamin D deficiency. 7. Generalized weakness and deconditioning. 8. Mild secondary hyperparathyroidism. DISCHARGE MEDICATIONS: 1. Lisinopril 10 mg daily. 2. Tamsulosin 0.4 daily. 3. Finasteride 5 mg daily. 4. Amlodipine 5 mg daily. 5. Augmentin 875 b.i.d. 6. Cholecalciferol 200 p.o. daily. 7. Diltiazem 120 p.o. daily. 8. Omeprazole 40 mg daily. 9. Sodium bicarbonate 650 b.i.d. 10. Furosemide 20 mg b.i.d. PRESENTING COMPLAINT: Hematuria. HISTORY OF PRESENTING COMPLAINT: Mr. Mancilla is an 81-year-old, male who was admitted to the hospital after being to other institutions for comorbidities. He eventually decided to come over here when he had a lot of bloody urine. Upon presentation, the patient was evaluated. Was interpreted the acute retention to have been due to clots in the bladder. Dr. Prieto reviewed the patient and recommended that at a later date, the patient will need a cystoscopy evaluation. During the hospital stay, the patient's shortness of breath got improved with adequate diuresis and also treatment of underlying pneumonia. Nephrology did a 24 hour urine collection to get a better idea of the GFR. Yesterday, we tried to remove the Putnam catheter but then after that, almost 6 hours later, Mr. Mancilla could not pass any urine. They bladder scanned him and there was about 600 mL. They had to recatheterize him. Today, he is going to be discharged in a very stable condition. He is going to go home with a Putnam catheter and follow up with Dr. Prieto. Patient also has atrial fibrillation which is rate controlled. Was on Coumadin but because of the risk of bleed and the fact that he is going to have an outpatient cystoscopy, we withheld it until he sees Dr. Prieto and then get the procedure done. The patient will also follow up with Dr. Durham for his chronic kidney failure. At the time of discharge, his vitals are stable. Blood pressure is 144/74, pulse of 78, respirations are 20, temperature is 98.9 degrees. Patient will be discharged on home health to help with physical rehabilitation. The patient does not want to go to any inpatient rehab. Time spent for dictation is 37 minutes. cc: MD Billy Ash MD
== END 2016-10-08 16:19 | disposition home health service (06) ==
LOC: SUATTDRO 14:17 → 4N 14:17
PROVIDERS: ADMIT Internal Medicine; ATTEND Internal Medicine